=== PATIENT | female | born 1970 | race Caucasian/White ===

== ENCOUNTER 2024-10-24 15:45 | Emergency (ER) | payer MEDICAID ==
[~2024-10-24] VITALS: Ht 162.6 cm; Wt 60.8 kg
[2024-10-24] MEDS ORDERED: LIDOCAINE HCL/MPF 1% 30 ML VIAL IJ ONE (16:36)
[2024-10-24] MEDS ORDERED: TDAP [DIPH/PERTUSSIS/TET] 0.5 ML VIAL IM ONE (16:37)
[2024-10-24] MEDS: BACI/NEOM/POLY B OINT PKT 1 UDPKT PACKET TP ONE (16:49)
[2024-10-24] MEDS: LIDOCAINE HCL/PF 1% 30 ML VIAL TP ONE (16:49)
[2024-10-24] MEDS: TDAP [DIPH/PERTUSSIS/TET] 0.5 ML VIAL IM ONE (16:54)
[2024-10-24] MEDS: HYDROCODONE/APAP 5/325MG TABLET PO ONE (16:54)
[2024-10-24] MEDS ORDERED: CLIN300C12 PO (17:25)
[2024-10-24] MEDS ORDERED: DOXY-326 PO (17:25)
[2024-10-24] MEDS ORDERED: CLINDAMYCIN HCL 150 MG CAPSULE ONE ×2 (17:28→17:36)
[2024-10-24] MEDS ORDERED: DOXYCYCLINE HYCLATE (100 MG) 100 MG TABLET ONE (17:29)
[2024-10-24] MEDS: CLINDAMYCIN HCL 150 MG CAPSULE PO ONE (17:39)
[2024-10-24] MEDS: DOXYCYCLINE HYCLATE (100 MG) 100 MG TABLET PO ONE (17:39)
[2024-10-24 18:55] VITALS: BP 118/81; TEMP 97.9; O2SAT 100
== END 2024-10-24 18:55 | disposition home or self-care (01) ==
LOC: ER 15:58
DX: S61.011A Laceration without foreign body of right thumb without damage to nail, initial encounter (principal); S61.212A Laceration without foreign body of right middle finger without damage to nail, initial encounter; F17.200 Nicotine dependence, unspecified, uncomplicated; Z88.0 Allergy status to penicillin; W54.0XXA Bitten by dog, initial encounter; Y93.89 Activity, other specified; Y92.89 Other specified places as the place of occurrence of the external cause; Y99.8 Other external cause status
CPT/HCPCS: 12002; 73130; 99284; A6403; J3490; 90715

== ENCOUNTER 2025-02-14 13:30 | Emergency (ER) | payer MEDICAID ==
[~2025-02-14] VITALS: Ht 162.6 cm; Wt 58.1 kg
[~2025-02-14 13:30] MED LIST: CLIN300C12 PO; DOXY-326 PO
[2025-02-14 15:20] VITALS: BP 122/76; TEMP 98; O2SAT 98
== END 2025-02-14 15:21 | disposition home or self-care (01) ==
LOC: ER 13:40
DX: S62.644A Nondisplaced fracture of proximal phalanx of right ring finger, initial encounter for closed fracture (principal); Z88.0 Allergy status to penicillin; X50.1XXA Overexertion from prolonged static or awkward postures, initial encounter; Y93.01 Activity, walking, marching and hiking; Y92.89 Other specified places as the place of occurrence of the external cause; Y99.8 Other external cause status
CPT/HCPCS: 73130-TC